=== PATIENT | male | born 1980 | race Hispanic/Latino ===

== ENCOUNTER 2025-09-07 15:54 | Outpatient (CLI) | payer BC ==
[2025-09-07 16:24] LABS: #Basophils 0.04 10x3/uL (0.0-0.2); #Eosinophils 0.12 10x3/uL (0.0-0.7); #Monocytes 0.96 10x3/uL (0.11-0.59); #Neutrophils 4.27 10x3/uL (1.40-6.50); %Basophils 0.4 % (0.0-1.0); %Eosinophils 1.3 % (0.0-10.0); %Lymphocytes 39.2 % (21.0-51.0); %Monocytes 10.8 % (0.0-10.0); %Neutrophils 48.0 % (42.0-75.0); Hematocrit 44.2 % (42.0-52.0); Hemoglobin 15.2 g/dL (14.0-18.0); Mean Corpuscular Hemoglobin 31.0 pg (27.0-31.0); Mean Corpuscular Volume 90.0 fL (78.0-98.0); Platelet Count 199 10x3/uL (130-400); Red Blood Cell (RBC) Count 4.91 mill/uL (4.70-6.10); White Blood Cell (WBC) Count 8.92 10x3/uL (4.8-10.8)
[2025-09-07 16:48] LABS: Anion Gap 15 mmol/L (10-20); BUN (Urea Nitrogen) 16 mg/dL (8.9-20.6); Calc. Creatinine Clearance 0 mL/min (70-130); Calcium 9.1 mg/dL (7.8-10.44); Carbon Dioxide 23 mmol/L (22-29); Chloride 107 mmol/L (98-107); Glucose 99 mg/dL (70-105); Potassium 3.6 mmol/L (3.5-5.1); Sodium 141 mmol/L (136-145)
== END 2025-09-07 15:55 | disposition home or self-care (01) ==
LOC: LABBT 15:54
PROVIDERS: ATTEND Orthopaedic Surgery
DX: Z01.812 Encounter for preprocedural laboratory examination (principal); S43.431D Superior glenoid labrum lesion of right shoulder, subsequent encounter; M89.511 Osteolysis, right shoulder
CPT/HCPCS: 80048; 85025

== ENCOUNTER 2025-09-14 07:18 | Day surgery (SDC) | payer BC ==
[2025-09-07 16:04] VITALS: BMI 29.2
[2025-09-14] MEDS ORDERED: Ropivacaine 0.5% HCl/PF (150 MG/30 ML VIAL) ONE (09:11)
[2025-09-14] MEDS ORDERED: Lidocaine 1% (PF) 30 ML VIAL ONE (09:14)
[2025-09-14] MEDS ORDERED: Lidocaine 1% PF 5 ML VIAL ONE (09:30)
[2025-09-14] MEDS ORDERED: Rocuronium Bromide 10 MG/ML (10ML VIAL) ONE (09:30)
[2025-09-14] MEDS ORDERED: Ondansetron PF 4 MG/2 ML Vial ONE (09:31)
[2025-09-14] MEDS ORDERED: CEFAZOLIN 2 GM VIAL ONE (09:33)
[2025-09-14] MEDS ORDERED: PROPOFOL 200 MG/20 ML VIAL ONE (09:48)
[2025-09-14] MEDS ORDERED: PHENYLEPHRINE-NS 100 MCG/ML 10 ML SYRINGE ONE (10:47)
[2025-09-14] MEDS ORDERED: SUGAMMADEX SODIUM 200 MG/2 ML VIAL ONE (10:53)
== END 2025-09-14 15:25 | disposition home or self-care (01) ==
LOC: SDC 07:18
PROVIDERS: ATTEND Orthopaedic Surgery
PROC: 0RNJ4ZZ Release Right Shoulder Joint, Percutaneous Endoscopic Approach (ICD-10-PCS; principal; 2025-09-14)
DX: S43.431A Superior glenoid labrum lesion of right shoulder, initial encounter (principal); M89.511 Osteolysis, right shoulder; X58.XXXA Exposure to other specified factors, initial encounter; Y93.H3 Activity, building and construction
CPT/HCPCS: C1713; J0169; J1100; J2003; J2250; J2405; J2704; J2795; J3010